=== PATIENT | male | born 1965 | race Caucasian/White ===

== ENCOUNTER 2018-02-08 06:36 | Day surgery (SDC) | payer OTHER ==
[~2018-02-08] VITALS: Ht 160 cm; Wt 73.2 kg
[~2018-02-08 06:36] MED LIST: DOXY100 PO; GABA300; HYDACE5 PO; Hair, Skin & N1 EACH; LIDO5TO; MULTIVITAMIN; PROACE100 PO; UNKNOWN BP MED; VENL150ER; VITAMINS
== END 2018-02-08 08:35 | disposition home or self-care (01) ==
LOC: ORSCSDS 06:36
PROVIDERS: Surgery
PROC: 0DJD8ZZ Inspection of Lower Intestinal Tract, Via Natural or Artificial Opening Endoscopic (ICD-10-PCS; principal; 2018-02-08 08:00)
DX: Z12.11 Encounter for screening for malignant neoplasm of colon (principal); K57.30 Diverticulosis of large intestine without perforation or abscess without bleeding
CPT/HCPCS: J7120

== ENCOUNTER 2021-03-24 19:17 | Emergency (ER) | payer OTHER ==
[~2021-03-24] VITALS: Ht 157.5 cm; Wt 74.8 kg
[2021-03-24] MEDS ORDERED: LIDO700A20 TOP (21:00)
== END 2021-03-24 21:32 | disposition home or self-care (01) ==
LOC: ER 19:17
DX: M77.02 Medial epicondylitis, left elbow (principal); M77.12 Lateral epicondylitis, left elbow; Z79.899 Other long term (current) drug therapy
CPT/HCPCS: 99283; A9270

== ENCOUNTER → 2023-04-02 | Outpatient (CLI) | payer OTHER ==
[~2023-04-02] MED LIST changes: +LIDO700A20 TOP
== END ==
LOC: LAB 14:57 → LAB SHORT 14:57
DX: F10.10 Alcohol abuse, uncomplicated (principal)
CPT/HCPCS: 84550